=== PATIENT | female | born 1970 | race Caucasian/White ===

== ENCOUNTER 2025-06-29 14:23 | Inpatient (IN) ==
--- NOTE | 2025-06-29 14:51 | Emergency Department Note ---
Impression & Plan Closed hip fracture, Fall, Anemia, Leukocytosis ED Provider Note NAME: JACKIE SEAY (ELAINE) AGE: 55 SEX: F : 1970 ARRIVES VIA: Walk-In INFORMANT: Patient ED PROVIDER(S): Jasper Marlow DO CHIEF COMPLAINT: right hip and pelvis pain HPI: Patient is a 55-year-old female who presents to the ER for right hip and pelvis pain following a fall. She notes that she is post be walking with a walker but she was not using it at the time and her partner who is using it lost his balance and fell into her. She fell onto her right hip. She is having right hip pain since the fall earlier today. Denies any head strike. No neck pain. No other complaints at this time. She notes she does have a small abrasion to the right finger. Tetanus is up-to-date. No blood thinners. ADDITIONAL HISTORY OBTAINED: Per HPI Chronic Medical/Social Conditions Affecting Care: Per HPI PAST MEDICAL HISTORY:See Below PAST SURGICAL HISTORY:See Below FAMILY HISTORY:See Below SOCIAL HISTORY:See Below HOME MEDICATIONS:See Below ALLERGIES:See Below VITALS:See Below PHYSICAL EXAMINATION: GENERAL: alert, well appearing, well nourished, no distress, non-toxic HEAD: normal cephalic, atraumatic EYE EXAM: normal conjunctiva, PERRL and EOM's grossly intact OROPHARYNX: no exudate, no erythema, lips, buccal mucosa, and tongue normal and mucous membranes are moist NECK: supple, no nuchal rigidity, no adenopathy, non-tender CHEST: stable to compression anteriorly and posteriorly LUNGS: clear to auscultation. Normal chest wall mechanics HEART: no murmurs, S1 normal and S2 normal ABDOMEN: abdomen soft, non-tender, normo-active bowel sounds, no masses, no rebound or guarding. PELVIS: stable to compression anteriorly and posteriorly but tenderness on palpation of the right pelvis/groin BACK: Back is symmetrical on inspection and there is no deformity, no midline tenderness, no CVA tenderness. UPPER EXTREMITIES: full active and passive range of motion of all joints without tenderness to palpation LOWER EXTREMITIES: full active and passive range of motion of all joints without tenderness to palpation NEURO EXAM: Normal sensorium, cranial nerves II-XII grossly intact, normal speech, no gross weakness of arms, no gross weakness of legs. GCS: 15. MEDICAL DECISION MAKING: Patient is a 55-year-old female who presents ER for right hip pain. X-rays were obtained and showed no acute fracture. CT was obtained due to significant pain and did show a femoral neck fracture and greater troches fracture. Following this blood work was obtained and the case was discussed with the hospitalist and she was admitted for further workup. Labs showed mild leukocytosis 14,000. Mild anemia 11.6. BMP along with LFTs bilirubin and lipase is unremarkable. UA was contaminated. Patient declined pain medications she notes she was comfortable. Consults/Care Managements Discussions: Per [facility] Triage Nursing notes reviewed. Limited review of prior medical records performed Vital Signs: reviewed and remarkable for htn Differential diagnosis: Differential diagnoses include major intracranial, cervical, spinal, thoracic, abdominal, pelvic and neurologic injury. Fracture, contusion, sprain, strain, laceration, abrasions included as well. ER treatment provided: See below Diagnostics interpreted by me include EKG and cardiac monitoring as listed below: -Cardiac Monitoring: An order was placed for continuous cardiac monitoring. The monitor shows a rate of 60 with sinus rhythm. -ECG: none -Laboratory studies:Interpreted by me as stated above in MDM and shown below. Imaging studies: Xrays: As interpreted by me: X-rays of the right hip and pelvis showed no acute fracture CTs show: CT of the pelvis shows right hip fracture Procedures:none Critical Care: None Past Med/Surg History Problem List (Updated 06/29/25 @ 20:07 by Jasper Marlow DO) Leukocytosis (Acute) Anemia (Acute) Fall (Acute) Closed hip fracture (Acute) Social History Smoking Status: Former smoker Preferred Language: Mongolian Feels Safe at Home: Yes Home Meds Home Medications Medication Instructions Recorded Confirmed alprazolam 1 mg tablet 1 mg PO HS 06/29/25 06/29/25 citalopram 40 mg tablet 40 mg PO HS 06/29/25 06/29/25 ferrous sulfate 325 mg (65 mg 325 mg PO HS 06/29/25 06/29/25 iron) tablet (Iron (ferrous sulfate)) [id number] 8 mg-folic 400 1 tab PO DAILY 06/29/25 06/29/25 mcg-K 50 mcg-lutein 300 mcg tablet (Centrum Silver Women) Results & Data (ED) Vital Signs Vital Signs - 24 hr 06/29/25 14:32 06/29/25 18:21 06/29/25 18:28 Temperature 36.8 C Temperature Source Oral Pulse Rate 61 63 Pulse Rate [Right Finger] Respiratory Rate 18 18 18 Respiratory Effort / Characteristics Non-Labored Spontaneous Respiratory Depth Normal Normal Respiratory Pattern Regular Blood Pressure 144/86 H Blood Pressure [Right Arm] Blood Pressure Mean 105 Blood Pressure Mean [Right Arm] Pulse Oximetry 97 97 98 Oxygen Delivery Method Room Air Room Air Room Air Sepsis Recent Fever Within 48 Hours No Sepsis New/Unexplained Change in Mental Status N/A Sepsis Action Taken by Nursing No Action Required 06/29/25 18:29 06/29/25 18:36 06/29/25 19:00 Temperature 36.8 C Temperature Source Oral Pulse Rate 59 L Pulse Rate [Right Finger] 62 63 Respiratory Rate 18 18 Respiratory Effort / Characteristics Non-Labored Spontaneous Respiratory Depth Normal Normal Respiratory Pattern Regular Blood Pressure Blood Pressure [Right Arm] 142/72 H 130/81 Blood Pressure Mean Blood Pressure Mean [Right Arm] 95 97 Pulse Oximetry 98 98 Oxygen Delivery Method Room Air Room Air Sepsis Recent Fever Within 48 Hours Sepsis New/Unexplained Change in Mental Status Sepsis Action Taken by Nursing Laboratory Data 06/29/25 18:11 06/29/25 18:11 Lab Results 06/29/25 06/29/25 Range/Units 18:11 Unknown WBC 14.18 H (4.8-10.8) K/ul RBC 4.29 (4.20-5.40) M/uL Hgb 11.6 L (12.0-16.0) g/dl Hct 36.8 L (37.0-47.0) % MCV 85.8 (80.0-100.0) fL MCH 27.0 (25.0-34.0) pg MCHC 31.5 L (32.0-36.0) g/dL RDW Std Deviation 46.1 (36.4-46.3) fL RDW Coeff of [place] 14.9 H (11.5-14.5) % Plt Count 200 (130-400) K/uL MPV 8.6 L (9.4-12.4) fL Immature Gran % (Auto) 0.6 % Neut % (Auto) 74.6 % Lymph % (Auto) 17.3 % [place] % (Auto) 5.8 % Eos % (Auto) 1.1 % Baso % (Auto) 0.6 % Neut # (Auto) 10.59 H (1.40-6.50) K/uL Lymph # (Auto) 2.45 (1.20-3.40) K/uL [place] # (Auto) 0.82 H (0.11-0.59) K/uL Eos # (Auto) 0.15 (0.00-0.50) K/uL Baso # (Auto) 0.09 (0.00-0.20) K/uL Immature Gran # (Auto) 0.08 (0.01-0.20) K/uL Sodium 141 (136-145) mmol/L Potassium 3.6 (3.5-5.1) mmol/L Chloride 106 (98-107) mmol/L Carbon Dioxide 28 (21-32) mmol/L Anion Gap 7 (3-11) BUN 10 (6-23) mg/dl Creatinine 0.56 L (0.6-1.2) mg/dl Est Cr Clr Drug Dosing Not Reportable eGFR 107.71 BUN/Creatinine Ratio 17.9 (10-20) Glucose 93 (70-99(Fasting)) mg/dl Calcium 9.3 (8.6-10.3) mg/dl Total Bilirubin 0.5 (0.2-1.0) mg/dl AST 21 (13-39) U/L ALT 19 (7-52) U/L Alkaline Phosphatase 77 (34-104) U/L Total Protein 7.5 (6.0-8.3) gm/dl Albumin 3.8 (3.4-5.0) gm/dl Globulin 3.7 (2.5-4.0) gm/dl Albumin/Globulin Ratio 1.0 (0.9-2) Lipase 26 (11-82) U/L Urine Color Yellow Urine Appearance Cloudy A (Clear) Urine pH 8.0 H (4.5-7.5) Ur Specific [place] 1.013 (1.000-1.030) Urine Protein Negative (Negative) Urine Glucose (UA) Negative (Negative) Urine Ketones 2+ H (Negative) Urine Blood 1+ H (Negative) Urine Nitrite Negative (Negative) Urine Bilirubin Negative (Negative) Urine Urobilinogen Negative (Negative) Ur Leukocyte Esterase 2+ H (Negative) Urine WBC (Auto) >50 H (0-5) /hpf Urine RBC (Auto) 6-10 H (0-2) /hpf U Hyaline Cast (Auto) 6-10 H (0-2) /lpf U Epithel Cells (Auto) 0-2 (0-2) /hpf Urine Bacteria (Auto) None Seen (None Seen) Amorphous Sediment Present A (None Prsent) Urine Comment Imaging Data Radiologist's Impression: Hip/Pelvis X-Ray 06/29/25 14:49 XR hip RT 2V w pelvis CLINICAL HISTORY: r pelvis and hip pain s/p fall COMPARISON: None FINDINGS: There is a skinfold artifact which mildly limits the exam. No fracture or dislocation seen at the pelvis or right hip. No significant degenerative change of the hips. IMPRESSION: No fracture seen. ACT 112: Negative or not required by law. Electronically signed by: Shawn Good M.D. 06/29/2025 3:[address] 06/29/25 16:32 EXAMINATION: PELVIS CT without CLINICAL HISTORY: Right hip, pelvis pain, status post fall PRIORS: None TECHNIQUE: Contiguous axial images were obtained through the pelvis without the use of intravenous contrast. Sagittal and coronal reformations are supplied. FINDINGS: Moderate osseous demineralization is noted. Allowing for this, a mildly comminuted right femoral neck and intertrochanteric right femoral neck right greater trochanteric fracture is present, image 50, series 2. No significant displacement. No acetabular fracture. Right obturator ring is intact. Pubic symphysis is not widened. Mild regional right hip soft tissue swelling. Muscle bulk is symmetric. Contralateral hip and acetabulum unremarkable. L5 vertebral body is normal. No displaced sacral fracture. IMPRESSION: Mildly comminuted right femoral neck and greater trochanteric fracture with near anatomic alignment. Orthopedic surgery consultation suggested. Final report was sent to the requesting service at 5:46 PM in the emergency department on 06/29/2025. ACT 112: Positive. There are findings on this examination that require communication between the performing entity and the patient following Patient Test Result Information Act ([place] ACT 112) guidelines. Electronically signed by Jess Beck 06-29-2025 5:47 PM Discharge Plan Visit Data Chief Complaint: Fall Stated Complaint: FALL, HIP PAIN ED Provider: Jasper Marlow Discharge Problem: Closed hip fracture, Fall, Anemia, Leukocytosis Condition: Fair Forms Stand Alone Forms: [facility] [email or web address] Prescriptions Prescriptions: No Action citalopram 40 mg tablet 40 mg PO HS alprazolam 1 mg tablet 1 mg PO HS Patient Comments: per pt she ran out about a week ago ferrous sulfate [Iron (ferrous sulfate)] 325 mg (65 mg iron) Tablet 325 mg PO HS Centrum Silver Women 8 mg iron-400 mcg-50 mcg Tablet 1 tab PO DAILY Referrals Referrals: PCP,NO [Primary Care Provider] - Discharge Problem: Closed hip fracture Qualifiers: Encounter type: initial encounter Laterality: right Qualified Code(s): S72.001A - Fracture of unspecified part of neck of right femur, initial encounter for closed fracture Fall Qualifiers: Encounter type: initial encounter Qualified Code(s): W19.XXXA - Unspecified fall, initial encounter Anemia Qualifiers: Anemia type: unspecified type Qualified Code(s): D64.9 - Anemia, unspecified Leukocytosis Qualifiers: Leukocytosis type: unspecified Qualified Code(s): D72.829 - Elevated white blood cell count, unspecified
--- NOTE | 2025-06-29 15:41 | XRay Report ---
XR hip RT 2V w pelvis CLINICAL HISTORY: r pelvis and hip pain s/p fall COMPARISON: None FINDINGS: There is a skinfold artifact which mildly limits the exam. No fracture or dislocation seen at the pelvis or right hip. No significant degenerative change of the hips. IMPRESSION: No fracture seen. ACT 112: Negative or not required by law. Electronically signed by: Shawn Good M.D. 06/29/2025 3:40 PM
--- NOTE | 2025-06-29 17:48 | CT Scan Report ---
EXAMINATION: PELVIS CT without CLINICAL HISTORY: Right hip, pelvis pain, status post fall PRIORS: None TECHNIQUE: Contiguous axial images were obtained through the pelvis without the use of intravenous contrast. Sagittal and coronal reformations are supplied. FINDINGS: Moderate osseous demineralization is noted. Allowing for this, a mildly comminuted right femoral neck and intertrochanteric right femoral neck right greater trochanteric fracture is present, image 50, series 2. No significant displacement. No acetabular fracture. Right obturator ring is intact. Pubic symphysis is not widened. Mild regional right hip soft tissue swelling. Muscle bulk is symmetric. Contralateral hip and acetabulum unremarkable. L5 vertebral body is normal. No displaced sacral fracture. IMPRESSION: Mildly comminuted right femoral neck and greater trochanteric fracture with near anatomic alignment. Orthopedic surgery consultation suggested. Final report was sent to the requesting service at 5:46 PM in the emergency department on 06/29/2025. ACT 112: Positive. There are findings on this examination that require communication between the performing entity and the patient following Patient Test Result Information Act ([place] ACT 112) guidelines. Electronically signed by Jess Beck 06-29-2025 5:47 PM
[2025-06-29] MEDS ORDERED: HYDROmorphone INJ 0.5 MG/0.5 ML SYR IV PRN (18:21)
[2025-06-29 18:26] LABS: Hematocrit (blood only) 36.8 % (37.0-47.0); Hemoglobin 11.6 g/dl (12.0-16.0); Immature Granulocytes # (auto) 0.08 K/uL (0.01-0.20); Immature Granulocytes % (auto) 0.6 %; Mean Corpuscular Hemoglobin 27.0 pg (25.0-34.0); Mean Corpuscular Volume 85.8 fL (80.0-100.0); Platelet Count 200 K/uL (130-400); RDW Standard Deviation 46.1 fL (36.4-46.3); Red Blood Count 4.29 M/uL (4.20-5.40); White Blood Count 14.18 K/ul (4.8-10.8)
[2025-06-29 18:41] LABS: Alanine Aminotransferase 19 U/L (7-52); Albumin Globulin Ratio 1.0 (0.9-2); Albumin Level 3.8 gm/dl (3.4-5.0); Alkaline Phosphatase 77 U/L (34-104); Anion Gap 7 (3-11); Bilirubin,Total 0.5 mg/dl (0.2-1.0); Blood Urea Nitrogen 10 mg/dl (6-23); Calcium 9.3 mg/dl (8.6-10.3); Carbon Dioxide 28 mmol/L (21-32); Chloride 106 mmol/L (98-107); Globulin 3.7 gm/dl (2.5-4.0); Glucose 93 mg/dl (70-99(Fasting)); Lipase 26 U/L (11-82); Potassium 3.6 mmol/L (3.5-5.1); Sodium 141 mmol/L (136-145); Total Protein 7.5 gm/dl (6.0-8.3)
[2025-06-29 19:58] LABS: Appearance Urine Cloudy (Clear); Bacteria Urine Automated None Seen (None Seen); Epithelial Cell Urine Auto 0-2 /hpf (0-2); Glucose Urine UA Negative (Negative); WBC Urine Automated >50 /hpf (0-5)
--- NOTE | 2025-06-29 20:31 | History & Physical Report ---
Date of Service June 29, 2025 Assessment & Plan (1) Closed hip fracture: (2) Fall: Plan 55 yo female with pmhx of neurologic disorder of unknown significance (uses walker, has right eye blindness, urinary incontinence) who presents after a fall for right hip pain 2/2 mechanical fall and right femur fracture. #Mechanical Fall #Right Comminuted Femur/Greater Trochanter Fracture -confirmed by CT imaging -tender to palpation Plan: -ortho consult appreciate recs -discussed personally with ortho, recommending NPO after midnight, SCDs -oxycodone, dilaudid prn and scheduled tylenol for pain control -PT/OT ordered #Neurologic Disorder of Unknown Origin -patient has chronic urinary incontinence, uses walker, all chronic -right eye blindness -patient appears to have some element of spasticity/poor mobility in hands and legs with hyperreflexia in arms and legs -patient denies formal diagnosis but states she has had these issues for a very long time Plan: -neurology consultation outpatient -will likely need tavares placement for procedure #UTI #Leukocytosis -suggested by UA and leukocytosis -no symptoms but fall and overall apperance concerning Plan: -start ceftriaxone x5 days #Cachexia -transfer and pumphouse operator chief consult I spent a total of 80 minutes in direct patient care, including [id number] time with the patient and/or family, reviewing medical records, ordering and reviewing diagnostic tests, and coordinating care with other healthcare providers. This time includes: history taking, physical examination, medical decision making, counseling, ECG interpretation, imaging interpretation, lab interpretation, orders, and education, excluding time spent in the performance of separately billed services. History of Present Illness Chief Complaint: -right hip pain Primary Care Provider: NO PCP 55 yo female with pmhx of neurologic disorder of unknown significance (uses walker, has right eye blindness, urinary incontinence) who presents after a fall for right hip. Patient is visiting from [place] and has no prior admissions here at [facility]. In the ED, CT hip revealing right commuted femur/greater trochanter fracture, admitted to medicine for further workup. Patient seen and examined at bedside. Father present as well. Patient was getting out of car and father fell on her which caused her to fall on the ground. No LOC, no head strike. Uses a walker but was not using it at the time, and occasionally does not use it. Immediately felt pain in right hip. She states that she has a neurologic disorder of unknown origin, she uses a walker, chronic cachexia, urinary incontinence, and right eye blindness. States she does not have any other medical conditions. Visiting from out of town in [place]. Denies alcohol or tobacco use, full code. Home Medications Medication Instructions Recorded Confirmed Type alprazolam 1 mg tablet 1 mg PO HS 06/29/25 06/29/25 History citalopram 40 mg tablet 40 mg PO HS 06/29/25 06/29/25 History ferrous sulfate 325 mg (65 mg 325 mg PO HS 06/29/25 06/29/25 History iron) tablet (Iron (ferrous sulfate)) [id number]-[id number] 8 mg-folic 400 1 tab PO DAILY 06/29/25 06/29/25 History mcg-K 50 mcg-lutein 300 mcg tablet (Centrum Silver Women) Past Med/Surg History Problem List (Updated 06/29/25 @ 20:07 by Jasper Marlow DO) Leukocytosis (Acute) Anemia (Acute) Fall (Acute) Closed hip fracture (Acute) Social History Smoking Status: Former smoker Preferred Language: Burkinan Feels Safe at Home: Yes Review of Systems Review of Systems: -negative unless listed above Physical Exam Physical Exam: Gen: A&O 3 NAD, severe cachexia and sarcopenia HEENT: NCAT, EOMI, not icteric. External ears normal. No rhinorrhea. Moist mucous membranes. Neck: Supple, full range of motion, no observable masses, No meningeal sign. Lungs: No Respiratory distress. CV: RRR, no edema. Abdomen: Soft, nondistended, No rebound tenderness. MSK: tenderness to right hip, slight internal rotation Skin: No rashes, petechiae, lesions. Normal color per patient. Neuro: Normal Gait, Grossly intact. Psych: Appropriate for situation. Results & Data Results & Data Vital Signs (Past 12 Hours) Vital Signs Temp Pulse Pulse Resp BP BP Pulse Ox 06/29/25 19:00 36.8 C 63 18 130/81 98 06/29/25 18:36 59 L 06/29/25 18:29 62 18 142/72 H 98 06/29/25 18:28 18 98 06/29/25 18:21 63 18 97 06/29/25 14:32 36.8 C 61 18 144/86 H 97 O2 Del Method 06/29/25 19:00 Room Air 10/14/25 18:36 06/29/25 18:29 Room Air 06/29/25 18:28 Room Air 06/29/25 18:21 Room Air 06/29/25 14:32 Room Air Laboratory Results -personally reviewed, leukocytosis of unclear etiology but likely reactive given neutrophilic predominance, creatinine WNL, UA with significant WBC and leuks. CT imaging revealing slightly comminuted right femur/greater trochanter fracture. Code Status & VTE Plan Code Status -full code VTE Prophylaxis Plan VTE Prophylaxis will be ordered: Yes (1) Closed hip fracture Encounter type: initial encounter Laterality: right Qualified Code(s): S72.001A - Fracture of unspecified part of neck of right femur, initial encounter for closed fracture (2) Fall Encounter type: initial encounter Qualified Code(s): W19.XXXA - Unspecified fall, initial encounter
[2025-06-29] MEDS ORDERED: ONDANSETRON INJ 2 MG/ML 2 ML VIAL IV PRN (20:47)
[2025-06-29] MEDS ORDERED: POLYETHYLENE (MIRALAX) 17 GM PACK PO PRN (20:47)
--- NOTE | 2025-06-29 22:06 | XRay Report ---
Exam(s): XR CXR 1 VIEW EXAM: XR Chest, 1 View CLINICAL HISTORY: Reason for exam: preop, unknown medical hx. TECHNIQUE: Frontal view of the chest. COMPARISON: No relevant prior studies available. FINDINGS: Lungs: No consolidation. Pleural space: No significant pleural effusion. No pneumothorax. Heart: No cardiomegaly or pulmonary vascular congestion. Bones/joints: No acute fracture. No dislocation. IMPRESSION: No evidence of acute cardiopulmonary disease. Electronically signed by: Franklin Fowler M.D. 06/29/25 22:04 PM
[2025-06-29] MEDS: cefTRIAXone SODIUM 2,000 MG/50 ML BAG IV SCH (22:15)
[2025-06-29] MEDS: CITALOPRAM 40 MG TAB PO SCH (22:16)
[2025-06-29] MEDS: ACETAMINOPHEN 500 MG TAB PO SCH (22:21)
[2025-06-29] MEDS: Patient's HEIGHT &/or WEIGHT Needed STA (22:42)
[2025-06-29] MEDS: LACTATED RINGER'S 1,000 ML IV SCH (22:45)
[2025-06-30 06:34] LABS: Hematocrit (blood only) 33.6 % (37.0-47.0); Hemoglobin 11.0 g/dl (12.0-16.0); Mean Corpuscular Hemoglobin 28.2 pg (25.0-34.0); Mean Corpuscular Volume 86.2 fL (80.0-100.0); Platelet Count 177 K/uL (130-400); RDW Standard Deviation 45.4 fL (36.4-46.3); Red Blood Count 3.90 M/uL (4.20-5.40); White Blood Count 7.77 K/ul (4.8-10.8)
[2025-06-30 07:09] LABS: Anion Gap 6.0 (3-11); Blood Urea Nitrogen 10.0 mg/dl (6-23); Calcium 8.6 mg/dl (8.6-10.3); Carbon Dioxide 28.0 mmol/L (21-32); Chloride 107.0 mmol/L (98-107); Creatinine Clr Calc Pharmacy 82.3 ml/min; Glucose 82.0 mg/dl (70-99(Fasting)); Potassium 3.6 mmol/L (3.5-5.1); Sodium 141.0 mmol/L (136-145)
[2025-06-30 07:13] LABS: INR 1.2 (0.9-1.1); Prothrombin Time 12.1 Seconds (9.0-12.0)
--- NOTE | 2025-06-30 09:18 | Orthopedic Consultation ---
Date of Service June 30, 2025 Assessment & Plan (1) Closed fracture of greater trochanter of right femur: * Case/imaging reviewed and discussed with Dr Hahn * Available imaging demonstrates fracture of the greater trochanter * Minimal pain with hip motion on exam * Recommend MRI hip to further differentiate fracture pattern * Weight bearing status: NWB until imaging complete * Possible OR depending on imaging findings * Maintain NPO for now * Daily treatment: Physical Therapy/ Occupational Therapy per protocol * Pain control * Disposition: TBD * Remainder care per primary team * Will continue to follow and update plan as available * Update * MRI complete, demonstrates intertrochanteric fracture * Plan for OR this afternoon with Dr Coronado * Maintain NPO * NWB pre-op History of Present Illness Reason for Consultation: R hip pain Requesting Physician: . Attending Physician: Bre Limon MD .Patient is a 55 y/o female with right hip pain. PMH including neurologic disorder of unknown significance (uses walker, has right eye blindness, urinary incontinence). Presents to hospital with right hip pain after a fall. Per report patient was ambulating with her father when he fell causing her to also fall, injuring the right hip. Unable to ambulate following fall secondary to pain. Current workup including XR and CT right hip demonstrating what appears to be an isolated greater trochanter fracture with unicortical femoral neck extension. Admitted to hospital medicine team. Orthopedics consulted for management recommendations. At time of exam patient lying comfortably in bed, no acute distress. Reports mild hip pain at rest that increases with attempted weight bearing. Denies tingling/numbness of the right lower extremity. Uses walker at baseline. Allergies Allergy/AdvReac Type Severity Reaction Status Date / Time No Known Allergies Allergy Unverified 06/29/25 21:37 Home Medications Medication Instructions Recorded Confirmed Type alprazolam 1 mg tablet 1 mg PO HS 06/29/25 06/29/25 History citalopram 40 mg tablet 40 mg PO HS 06/29/25 06/29/25 History ferrous sulfate 325 mg (65 mg 325 mg PO HS 06/29/25 06/29/25 History iron) tablet (Iron (ferrous sulfate)) [id number] 8 mg-folic 400 1 tab PO DAILY 06/29/25 06/29/25 History mcg-K 50 mcg-lutein 300 mcg tablet (Centrum Silver Women) Past Med/Surg History Problem List (Updated 06/30/25 @ 09:16 by Bo Guevara PA-C) Closed fracture of greater trochanter of right femur Leukocytosis (Acute) Anemia (Acute) Fall (Acute) Social History Smoking Status: Former smoker Hx Alcohol Use: No Hx Substance Use: No Preferred Language: Greenlandic Communication Ability: Effective Eap Consultant Required: No Beliefs That Will Affect Care: None Current Living Situation: Alone Feels Safe at Home: Yes Assistive Devices: Denture - Upper, Glasses and Walker Review of Systems All systems reviewed & are unremarkable except as noted in HPI & below. Physical Exam . * General: Alert and oriented, no acute distress * Constitutional: well-developed, well-nourished. * Respiratory: Normal respiratory effort, no distress * Gastrointestinal: No tenderness to palpation, no rigidity or guarding. * Skin: No rash or lesion. * Neurologic: Grossly normal * Musculoskeletal: Right lower extremity with no obvious deformity or overlying skin changes. Mild TTP anterior hip/groin region. Otherwise no specific tenderness of the thigh, knee, lower leg. No pain with logroll. Otherwise ROM hip not assessed. AROM foot/ankle intact. Sensation intact plantar/dorsal foot. Brisk capillary refill. Results & Data Results & Data Laboratory Results . Diagnostic Findings . Hip/Pelvis X-Ray 06/29/25 14:49 XR hip RT 2V w pelvis CLINICAL HISTORY: r pelvis and hip pain s/p fall COMPARISON: None FINDINGS: There is a skinfold artifact which mildly limits the exam. No fracture or dislocation seen at the pelvis or right hip. No significant degenerative change of the hips. IMPRESSION: No fracture seen. ACT 112: Negative or not required by law. Electronically signed by: Shawn Good M.D. 06/29/2025 3:[address] 06/29/25 16:32 EXAMINATION: PELVIS CT without CLINICAL HISTORY: Right hip, pelvis pain, status post fall PRIORS: None TECHNIQUE: Contiguous axial images were obtained through the pelvis without the use of intravenous contrast. Sagittal and coronal reformations are supplied. FINDINGS: Moderate osseous demineralization is noted. Allowing for this, a mildly comminuted right femoral neck and intertrochanteric right femoral neck right greater trochanteric fracture is present, image 50, series 2. No significant displacement. No acetabular fracture. Right obturator ring is intact. Pubic symphysis is not widened. Mild regional right hip soft tissue swelling. Muscle bulk is symmetric. Contralateral hip and acetabulum unremarkable. L5 vertebral body is normal. No displaced sacral fracture. IMPRESSION: Mildly comminuted right femoral neck and greater trochanteric fracture with near anatomic alignment. Orthopedic surgery consultation suggested. Final report was sent to the requesting service at 5:46 PM in the emergency department on 06/29/2025. ACT 112: Positive. There are findings on this examination that require communication between the performing entity and the patient following Patient Test Result Information Act ([place] ACT 112) guidelines. Electronically signed by Jess Beck 06-29-2025 5:47 PM Chest X-Ray 06/29/25 20:45 Exam(s): XR CXR 1 VIEW EXAM: XR Chest, 1 View CLINICAL HISTORY: Reason for exam: preop, unknown medical hx. TECHNIQUE: Frontal view of the chest. COMPARISON: No relevant prior studies available. FINDINGS: Lungs: No consolidation. Pleural space: No significant pleural effusion. No pneumothorax. Heart: No cardiomegaly or pulmonary vascular congestion. Bones/joints: No acute fracture. No dislocation. IMPRESSION: No evidence of acute cardiopulmonary disease. Electronically signed by: Franklin Fowler M.D. 06/29/25 22:04 PM PG Care Time/CCT Total # of Minutes Spent Total Time Spent with Patient: Total time spent is greater than 50% in coordination of care (as documented) at patient's floor/unit and/or counseling patient: [place] [address] IN/OBS CONSULT LVL 4,60M Patient Type New Medical Decision Making Moderate Complexity Diagnoses Closed fracture of greater trochanter of right femur S72.111A
--- NOTE | 2025-06-30 11:15 | Hospitalist Progress Note ---
Date of Service June 30, 2025 Assessment & Plan (1) Closed hip fracture: (2) Fall: Plan 55 yo female with pmhx of neurologic disorder of unknown significance (uses walker, has right eye blindness, urinary incontinence) who presents after a fall for right hip pain 2/2 mechanical fall and right femur fracture. Mechanical Fall Right Comminuted Femur/Greater Trochanter Fracture confirmed by CT imaging Mild pain to rom. ortho consult, await further recs Pain Mx by oxycodone, dilaudid prn and scheduled tylenol for pain control; c/w bowel regimen. PT/OT UTI Leukocytosis suggested by UA and leukocytosis no symptoms but fall and overall appearance concerning f/u Urine Cx, c/w ceftriaxone 06/29 for 5 days Neurologic Disorder of Unknown Origin -patient has chronic urinary incontinence, uses walker, all chronic -right eye blindness -patient appears to have some element of spasticity/poor mobility in hands and legs with hyperreflexia in arms and legs -patient denies formal diagnosis but states she has had these issues for a very long time Plan: -neurology consultation outpatient -will likely need tavares placement for procedure #Cachexia/underlying chronic malnutrition-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 Patient was lying in bed, on room air, NAD, resting comfortably. Patient reports no pain at right hip with no movement, gets some pain when trying to sit up. Denies fever/sore throat/cough/chest pain/other review of symptoms. Physical Exam Physical Exam: Gen: A&O 3 NAD, severe cachexia and sarcopenia HEENT: NCAT, EOMI, not icteric. External ears normal. No rhinorrhea. Moist mucous membranes. Neck: Supple, full range of motion, no observable masses, No meningeal sign. Lungs: No Respiratory distress. CV: RRR, no edema. Abdomen: Soft, nondistended, No rebound tenderness. MSK: tenderness to right hip w/ ROM, no int rotation/shortening noted. Skin: No rashes, petechiae, lesions. Normal color per patient. Neuro: Normal Gait, Grossly intact. Psych: Appropriate for situation. Results & Data Results & Data Vital Signs (Past 12 Hours) Vital Signs Temp Pulse Resp BP Pulse Ox O2 Del Method 06/30/25 07:00 36.8 C 58 L 16 108/68 98 Room Air (1) Closed hip fracture Encounter type: initial encounter Laterality: right Qualified Code(s): S72.001A - Fracture of unspecified part of neck of right femur, initial encounter for closed fracture (2) Fall Encounter type: initial encounter Qualified Code(s): W19.XXXA - Unspecified fall, initial encounter
--- NOTE | 2025-06-30 11:19 | Magnetic Resonance Report ---
MRI OF THE RIGHT HIP WITHOUT CONTRAST CLINICAL HISTORY: Evaluate right hip fracture. COMPARISON STUDY: Pelvis and right hip radiographs and CT of the pelvis and hips June 29, 2025. TECHNIQUE: Utilizing a 3 Nicole magnet and dedicated coil, multiplanar, multi echo imaging of the [facility] t hip was performed without intra-articular or intravenous contrast. FINDINGS: A Greene balloon within the bladder is incidentally noted. There is a 3.8 cm oval-shaped T1 and T2 hyperintense left adnexal lesion. This favors an endometrioma. There is an adjacent 1.9 cm lef t ovarian lesion which favors a cyst. There is moderate edema within the right superior pubic ramus. There is associated linear T1 hypointense signal consistent with an acute nondisplaced fracture. Of n ote, there is an acute intertrochanteric fracture of the right femur. The fracture extends through th e greater trochanter to the base of the lesser trochanter. A portion of the greater trochanter is sli ghtly displaced. The remainder of the fracture is nondisplaced. There is an associated right hip join t effusion. There is moderate adjacent soft tissue edema. Edema extends into the right adductor muscu lature. There is mild T2 hyperintensity within the left ischial tuberosity. Minimal adjacent intramus cular edema. No definitive associated fracture line is present. There is no fracture within the left hip. IMPRESSION: 1. Acute intertrochanteric fracture of the right femur. A portion of the greater trochanter is slight ly displaced. The remainder of the fracture is nondisplaced. 2. Acute nondisplaced superior right pubic ramus fracture. 3. Mild marrow edema within the left ischial tuberosity is nonspecific without definitive fracture li ne. ACT 112: Negative or not required by law. Electronically signed by: Sreekanth Mcduffie M.D. 06/30/2025 11:18 AM
[2025-06-30] MEDS ORDERED: MIDAZOLAM HCL 1 MG/ML 2ML VIAL ONE (11:51)
[2025-06-30] MEDS ORDERED: LIDOCAINE 2% 2 ML VIAL/AMP(20MG/ML) INFIL ONE (11:51)
[2025-06-30] MEDS ORDERED: PROPOFOL IV EMULSION 10 MG/ML 20 ML VIAL IV ONE ×2 (11:56→12:00)
[2025-06-30] MEDS ORDERED: ONDANSETRON INJ 2 MG/ML 2 ML VIAL ONE (11:56)
[2025-06-30] MEDS ORDERED: BUPIVACAINE 0.5 % 5 MG/1 ML PF 10ML VIAL ONE (12:13)
--- NOTE | 2025-06-30 12:14 | Anesthesiology Consultation ---
Date of Service June 30, 2025 Assessment & Plan (1) Encounter for pre-operative examination: Chart Review Chart Review: Acceptable Risk for Surgery and Patient NOT seen in Pre Admission Testing Consults Requested none History Surgery Operation Date: 06/30/25 09:40 Proposed Procedures p Right Troch Nail - Doron Coronado MD Height/Weight Height: 5 ft 2 in Weight: 45.087 kg Allergies Allergy/AdvReac Type Severity Reaction Status Date / Time No Known Allergies Allergy Unverified 06/29/25 21:37 Medications Home Medications Medication Instructions Recorded Confirmed Last Taken alprazolam 1 mg tablet 1 mg PO HS 06/29/25 06/29/25 1 Week Ago ~06/22/25 citalopram 40 mg tablet 40 mg PO HS 06/29/25 06/29/25 06/28/25 ferrous sulfate 325 mg (65 mg 325 mg PO HS 06/29/25 06/29/25 06/28/25 iron) tablet (Iron (ferrous sulfate)) [id number] 8 mg-folic 400 1 tab PO DAILY 06/29/25 06/29/25 06/28/25 mcg-K 50 mcg-lutein 300 mcg tablet (Centrum Silver Women) Active Medications Generic Name Dose Route Start Last Admin Trade Name Freq PRN Reason Stop Dose Admin Acetaminophen 1,000 mg 06/29/25 22:00 06/30/25 05:43 Acetaminophen 500 Mg Tab PO 07/29/25 21:59 1,000 mg Q8 AMOL Administration Alprazolam 0.5 mg 06/29/25 21:00 06/29/25 22:22 Alprazolam 0.5 Mg Tablet PO 07/29/25 20:59 0.5 mg HS AMOL Administration Citalopram Hydrobromide 40 mg 06/29/25 21:00 06/29/25 22:16 Citalopram 40 Mg Tab PO 07/29/25 20:59 40 mg HS AMOL Administration Ceftriaxone Sodium 2,000 mg in 50 mls @ 100 mls/hr 06/29/25 22:00 06/29/25 22:45 Rocephin IV 07/04/25 21:59 Infused Q24H AMOL Infusion Lactated Ringer's 1,000 mls @ 80 mls/hr 06/29/25 22:00 06/30/25 12:01 Lr IV 06/30/25 21:59 Infused .[id number] AMOL Infusion Oxycodone HCl 5 mg 06/29/25 18:21 06/30/25 05:46 Oxycodone Hcl Ir 5 Mg Tab (Immediate Release) PO 07/13/25 18:20 5 mg Q4 PRN Administration Severe Pain (Scale 7, 8, 9,10) Social History Smoking Status: Former smoker Hx Alcohol Use: No Hx Substance Use: No Physical Exam Vital Signs Last Vital Signs Temp 98.6 F 06/30/25 11:35 Pulse 52 L 06/30/25 11:35 Resp 18 06/30/25 11:35 BP 106/70 06/30/25 11:35 Pulse Ox 97 06/30/25 11:35 O2 Del Method Room Air 06/30/25 11:35 Testing Laboratory Results 06/30/25 06:02 06/30/25 06:02 PT 12.1 Seconds (9.0-12.0) H 06/30/25 06:02 INR 1.2 (0.9-1.1) H 06/30/25 06:02 Urine Color Yellow 06/29/25 Unknown Urine Appearance Cloudy (Clear) A 06/29/25 Unknown Urine pH 8.0 (4.5-7.5) H 06/29/25 Unknown Ur Specific [place] 1.013 (1.000-1.030) 06/29/25 Unknown Urine Protein Negative (Negative) 06/29/25 Unknown Urine Glucose (UA) Negative (Negative) 06/29/25 Unknown Urine Ketones 2+ (Negative) H 06/29/25 Unknown Urine Nitrite Negative (Negative) 06/29/25 Unknown Ur Leukocyte Esterase 2+ (Negative) H 06/29/25 Unknown Urine WBC (Auto) >50 /hpf (0-5) H 06/29/25 Unknown Urine RBC (Auto) 6-10 /hpf (0-2) H 06/29/25 Unknown U Hyaline Cast (Auto) 6-10 /lpf (0-2) H 06/29/25 Unknown U Epithel Cells (Auto) 0-2 /hpf (0-2) 06/29/25 Unknown Urine Bacteria (Auto) None Seen (None Seen) 06/29/25 Unknown Blood Type A Positive 06/29/25 21:04 Antibody Screen NEGATIVE 06/29/25 21:04
--- NOTE | 2025-06-30 12:36 | History & Physical Bridge Note ---
Date of Service June 30, 2025 History & Physical Bridge Note I have examined the patient, reviewed the History & Physical and in the interval since the performance of the History & Physical I have noted the following changes of clinical significance: no changes noted
[2025-06-30] MEDS: TRANEXAMIC ACID / 0.7% NACL 1,000 MG/100 ML BAG IV ONE (12:51)
[2025-06-30] MEDS ORDERED: ATROPINE SULFATE 0.1 MG/ML 10ML SYR IV PRN (13:07)
[2025-06-30] MEDS ORDERED: ePHEDrine sulfate 50 MG/5 ML SYR ONE (13:26)
[2025-06-30] MEDS: BUPIVACAINE/EPINEPHRINE 0.5% MPF 1:200,000 30 ML VIAL ONE (13:55)
--- NOTE | 2025-06-30 14:15 | Operative Report ---
PG Post Operative Report Pre & Post Diagnosis Operation Date: 06/30/25 09:40 Pre-Op Diagnosis: Right intertrochanteric hip Fracture Post-Op Diagnosis: Right intertrochanteric hip Fracture I identified the patient and participated in the time-out.: Yes Procedure Operation Date: 06/30/25 09:40 Actual Procedures p Right Long Troch Nail(Right) - Doron Coronado MD Surgeon Doron Coronado MD Reconciler Dixon Castellanos PA-C Estimated Blood Loss 50 Findings Consistent with Post-Op Diagnosis Specimens None Anesthesia Type Spinal MAC Complications none Disposition Accompanied Patient To Recovery: No Indications The patient is a 55-year-old female with multiple medical comorbidities and Walker ambulator who sustained mechanical fall yesterday. That she had the acute onset of pain and could not ambulate afterwards. No preoperative/ preinjury hip pain. As she was brought to the emergency room where x-rays suggested a possible fracture. An MRI was obtained which showed a clear obvious nondisplaced intertrochanteric hip fracture. The patient indicated for surgical repair Description of Procedure Operative implants consist of: 1. Synthes right 340 mm x 10 mm long trochanteric nail. 2. 80 mm helical blade 3 40 mm x 5 mm distal interlocking screw. The patient was taken to the op room, identified, placed on the operating table in the supine position. All contact areas were appropriately padded. IV antibiotics were applied by the anesthesia team. A spinal anesthetic was implemented. The patient is then placed on the fracture table. The right leg was placed in boot traction of the left leg was placed in a well-leg caicedo. Applied some longitudinal traction to the foot and internally rotated foot so the kneecap pointed to the ceiling. Some x-rays were obtained. The fracture was nondisplaced. The right hip and leg were then scrubbed with Hibiclens, prepped with ChloraPrep and draped in usual sterile fashion. A curvilinear incision was made just proximal to the tip of the trochanter. Sharp dissection was Through subcutaneous tissue down to the level of the gluteal fascia. The gluteal fascia incised longitudinally in line with skin incision. A guidewire was placed just lateral to the tip of the trochanter and in line with the IM canal. This advanced under the IM canal under fluoroscopic guidance. This was verified and then overreamed with a large reamer. This guidewire was removed for the ball-tipped guidewire and we measured for nail length and a 340 mm nail was selected. I then overreamed the guidewire with a 10 mm reamer followed by the and . A Synthes right 340 mm bio 10 mm right long trochanteric nail was placed over the guidewire and tapped into position. The lateral aiming arm was attached. A stab incision was made in the lateral aiming arm was advanced the lateral aspect of the femur. A guidewire was placed in the central aspect of the femoral head in the AP and lateral planes. This was measured and a 88 mm helical blade was placed. The proximal setscrew was tightened. Attention was then drawn toward distal interlocking. Using a perfect nisqually technique a distal interlocking screw was placed in the dynamic hole. Stab incision was made. A drill was used and a 40 mm prole screw was placed. Safyral x-rays were obtained. Attention drawn toward closing. All wounds were irrigated extensively. I injected locally with 30 cc of half percent Marcaine with epinephrine. The luteal fascia was then closed with #1 Vicryl suture in running fashion the subcutaneous tissues of all wounds were then closed with 2-0 Dexon suture in a buried interrupted fashion skin was closed skin saige. Leg was then cleaned and dried and a sterile dressing with Xeroform, 4 fours, ABD pad and foam tape were applied. The patient was then taken off the fracture table and transferred to the recovery room in stable condition. Patient tolerated the procedure well and there were no complications. Dixon Castellanos, my physician assistant to the ceo, was present for the entire procedure. His assistance was required for proper patient positioning, prepping and draping, surgical exposure, retraction, perform the technical details of the operation, closure of the incision site, placement of postoperative sterile bandage. I attest to the content of the Intraoperative Record and any orders documented therein. Any exceptions are noted below.
--- NOTE | 2025-06-30 14:16 | Fluoroscopy Report ---
FL femur RT 2V CLINICAL HISTORY: RT TROCH NAIL COMPARISON STUDY: 06/29/2025 FLUOROSCOPY TIME: 65 seconds FLUOROSCOPY IMAGES: 5 EXPOSURE DOSE: 6 mGy FINDINGS: Fluoroscopy was provided for right femoral gamma nail. IMPRESSION: Intraoperative fluoroscopy. ACT 112: Negative or not required by law. Electronically signed by: Shawn Good M.D. 06/30/2025 2:15 PM
[2025-06-30] MEDS: ONDANSETRON INJ 2 MG/ML 2 ML VIAL IV PRN (14:36)
--- NOTE | 2025-06-30 14:40 | Anesthesiology Progress Note ---
Date of Service June 30, 2025 Anesthesia Post Procedure Vital Signs Vital Signs: Temp Pulse Pulse Pulse Resp BP BP 06/30/25 14:30 60 19 138/79 06/30/25 14:20 52 L 22 126/72 06/30/25 14:11 36.1 C L 61 12 124/61 06/30/25 12:41 37.0 C 64 18 138/78 06/30/25 11:35 37.0 C 52 L 18 106/70 06/30/25 07:00 36.8 C 58 L 16 108/68 06/29/25 20:40 06/29/25 20:40 37.4 C 61 20 133/75 06/29/25 19:00 36.8 C 63 18 130/81 06/29/25 18:36 59 L 06/29/25 18:29 62 18 142/72 H 06/29/25 18:28 18 06/29/25 18:21 63 18 Pulse Ox O2 Del Method O2 Flow Rate 06/30/25 14:30 100 Room Air 06/30/25 14:20 100 Room Air 06/30/25 14:11 97 Oxymask 5 06/30/25 12:41 97 Room Air 06/30/25 11:35 97 Room Air 06/30/25 07:00 98 Room Air 06/29/25 20:40 Room Air 06/29/25 20:40 96 Room Air 06/29/25 19:00 98 Room Air 06/29/25 18:36 06/29/25 18:29 98 Room Air 06/29/25 18:28 98 Room Air 06/29/25 18:21 97 Room Air Transfer of Care Handoff Completed per policy Notes Mental Status: alert / awake / arousable Patient Amnestic to Procedure: Yes Nausea / Vomiting: adequately controlled Pain: adequately controlled Airway Patency, RR, SpO2: stable & adequate BP & HR: stable & adequate Hydration State: stable & adequate Neuraxial Anesthesia: was administered and sensory block is resolving Anesthetic Complications: no major complications apparent
[2025-06-30] MEDS: ASPIRIN 81 MG ECTAB PO SCH (20:06)
[2025-06-30] MEDS: DOCUSATE SODIUM 100 MG CAP PO SCH (20:07)
[2025-07-01 06:35] LABS: Hematocrit (blood only) 31.2 % (37.0-47.0); Hemoglobin 10.0 g/dl (12.0-16.0); Immature Granulocytes # (auto) 0.03 K/uL (0.01-0.20); Immature Granulocytes % (auto) 0.3 %; Mean Corpuscular Hemoglobin 27.5 pg (25.0-34.0); Mean Corpuscular Volume 86.0 fL (80.0-100.0); Platelet Count 155 K/uL (130-400); RDW Standard Deviation 45.3 fL (36.4-46.3); Red Blood Count 3.63 M/uL (4.20-5.40); White Blood Count 10.58 K/ul (4.8-10.8)
[2025-07-01 06:51] LABS: Anion Gap 13.0 (3-11); Blood Urea Nitrogen 6.0 mg/dl (6-23); Calcium 8.3 mg/dl (8.6-10.3); Carbon Dioxide 22.0 mmol/L (21-32); Chloride 105.0 mmol/L (98-107); Creatinine Clr Calc Pharmacy 90.5 ml/min; Glucose 66.0 mg/dl (70-99(Fasting)); Magnesium 1.6 mg/dl (1.7-2.4); Potassium 3.4 mmol/L (3.5-5.1); Sodium 140.0 mmol/L (136-145)
[2025-07-01 08:09] VITALS: RESP 18; TEMP 97.9; O2SAT 100
--- NOTE | 2025-07-01 08:40 | Orthopedic Progress Note ---
Date of Service July 01, 2025 Assessment & Plan (1) Closed intertrochanteric fracture of right femur: * Continue Current Treatment * S/p right TFN * Weight bearing status: WBAT * Daily treatment: Physical Therapy/ Occupational Therapy per protocol * Pain control * Continue to monitor for ABLA * DVT prophylaxis, ok to resume from ortho standpoint * Disposition: TBD * Patient is from out of area and plans to return home once discharged. Discussed office/hospital f/u 2 weeks for progress check and staple/suture rem oval with orthopedic provider local to her area. * Remainder care per primary team Subjective .Active Problems: S/p right TFN POD a 55 y/o female s/p right TFN. Doing well overall, pain managed and improved function. Denies fever/chills, chest pain/SOB, nausea/vomiting. Otherwise no complaints. Review of Systems All systems reviewed & are unremarkable except as noted in HPI & below. Physical Exam . * General: Alert and oriented, no acute distress * Constitutional: well-developed, well-nourished. * Respiratory: Normal respiratory effort, no distress * Gastrointestinal: No tenderness to palpation, no rigidity or guarding. * Skin: No rash or lesion. * Neurologic: Grossly normal * Musculoskeletal: Right hip surgical dressing CDI, not removed for exam. Otherwise no obvious deformity or overlying skin changes. Diffuse TTP proximal thigh and hip region. Otherwise no specific tenderness of distal thigh, lower leg, foot/ankle. AROM hip flexion limited secondary to pain. AROM foot/ankle intact. Sensation intact plantar/dorsal foot. Brisk capillary refill. Results & Data Results & Data Laboratory Results . Diagnostic Findings . Hip MRI 06/30/25 07:18 MRI OF THE RIGHT HIP WITHOUT CONTRAST CLINICAL HISTORY: Evaluate right hip fracture. COMPARISON STUDY: Pelvis and right hip radiographs and CT of the pelvis and hips June 29, 2025. TECHNIQUE: Utilizing a 3 Nicole magnet and dedicated coil, multiplanar, multi echo imaging of the right hip was performed without intra-articular or intravenous contrast. FINDINGS: A Greene balloon within the bladder is incidentally noted. There is a 3.8 cm oval-shaped T1 and T2 hyperintense left adnexal lesion. This favors an endometrioma. There is an adjacent 1.9 cm left ovarian lesion which favors a cyst. There is moderate edema within the right superior pubic ramus. There is associated linear T1 hypointense signal consistent with an acute nondisplaced fracture. Of note, there is an acute intertrochanteric fracture of the right femur. The fracture extends through the greater trochanter to the base of the lesser trochanter. A portion of the greater trochanter is slightly displaced. The remainder of the fracture is nondisplaced. There is an associated right hip joint effusion. There is moderate adjacent soft tissue edema. Edema extends into the right adductor musculature. There is mild T2 hyperintensity within the left ischial tuberosity. Minimal adjacent intramuscular edema. No definitive associated fracture line is present. There is no fracture within the left hip. IMPRESSION: 1. Acute intertrochanteric fracture of the right femur. A portion of the greater trochanter is slightly displaced. The remainder of the fracture is nondisplaced. 2. Acute nondisplaced superior right pubic ramus fracture. 3. Mild marrow edema within the left ischial tuberosity is nonspecific without definitive fracture line. ACT 112: Negative or not required by law. Electronically signed by: Sreekanth Mcduffie M.D. 06/30/2025 11:18 AM Femur X-Ray 06/30/25 12:30 FL femur RT 2V CLINICAL HISTORY: RT TROCH NAIL COMPARISON STUDY: 06/29/2025 FLUOROSCOPY TIME: 65 seconds FLUOROSCOPY IMAGES: 5 EXPOSURE DOSE: 6 mGy FINDINGS: Fluoroscopy was provided for right femoral gamma nail. IMPRESSION: Intraoperative fluoroscopy. ACT 112: Negative or not required by law. Electronically signed by: Shawn Good M.D. 06/30/2025 2:15 PM PG Care Time/CCT Total # of Minutes Spent Total Time Spent with Patient: Total time spent is greater than 50% in coordination of care (as documented) at patient's floor/unit and/or counseling patient: Coding Level of Care Code 20541 Post Operative Follow-Up Diagnoses Closed intertrochanteric fracture of right femur S72.141A
[2025-07-01] MEDS: MAGNESIUM SULFATE / D5W 1 GM/100 ML BAG IV SCH (08:53)
[2025-07-01] MEDS: POTASSIUM CHLORIDE CRTAB 20 MEQ TABCR PO STA (08:53)
[2025-07-01 09:58] LABS: Prealbumin 11.6 mg/dl (20-40)
--- NOTE | 2025-07-01 11:20 | Discharge Summary ---
Date of Service July 01, 2025 Admission HPI Per Admitting Provider 55 yo female with pmhx of neurologic disorder of unknown significance (uses walker, has right eye blindness, urinary incontinence) who presents after a fall for right hip. Patient is visiting from [place] and has no prior admissions here at [facility]. In the ED, CT hip revealing right commuted femur/greater trochanter fracture, admitted to medicine for further workup. Patient seen and examined at bedside. Father present as well. Patient was getting out of car and father fell on her which caused her to fall on the ground. No LOC, no head strike. Uses a walker but was not using it at the time, and occasionally does not use it. Immediately felt pain in right hip. She states that she has a neurologic disorder of unknown origin, she uses a walker, chronic cachexia, urinary incontinence, and right eye blindness. States she does not have any other medical conditions. Visiting from out of town in [place]. Denies alcohol or tobacco use, full code. Admission Exam Per Admitting Provider Gen: A&O 3 NAD, severe cachexia and sarcopenia HEENT: NCAT, EOMI, not icteric. External ears normal. No rhinorrhea. Moist mucous membranes. Neck: Supple, full range of motion, no observable masses, No meningeal sign. Lungs: No Respiratory distress. CV: RRR, no edema. Abdomen: Soft, nondistended, No rebound tenderness. MSK: tenderness to right hip, slight internal rotation Skin: No rashes, petechiae, lesions. Normal color per patient. Neuro: Normal Gait, Grossly intact. Psych: Appropriate for situation. Principal Diagnosis Intramedullary Nailing of Right Hip Fracture Discharge Exam Gen: A&O 3 NAD, severe cachexia and sarcopenia HEENT: NCAT, EOMI, not icteric. External ears normal. No rhinorrhea. Moist mucous membranes. Neck: Supple, full range of motion, no observable masses, No meningeal sign. Lungs: No Respiratory distress. CV: RRR, no edema. Abdomen: Soft, nondistended, No rebound tenderness. MSK: Right hip dressing c/d/i Skin: No rashes, petechiae, lesions. Normal color per patient. Neuro: Normal Gait, Grossly intact. Psych: Appropriate for situation. Discharge Data Allergies Allergy/AdvReac Type Severity Reaction Status Date / Time No Known Allergies Allergy Unverified 06/29/25 21:37 Consultations 06/29/25 18:18 ED Decision to Admit Stat 06/29/25 18:21 Consult Orthopedic Surgery Routine Procedures Performed Operation Date: 06/30/25 09:40 Actual Procedures p Right Long Troch Nail(Right) - Doron Coronado MD Ordered Studies 06/29/25 16:32 CT pelvis wo con Stat 06/30/25 07:18 MRI Hip [MR hip RT wo con] Routine 06/30/25 12:07 US - OR guided needle placemen Routine 06/30/25 12:30 FL femur RT 2V Routine Hospital Course (1) Closed hip fracture: (2) Fall: Plan 55 yo female with pmhx of neurologic disorder of unknown significance (uses walker, has right eye blindness, urinary incontinence) who presents after a fall for right hip pain 2/2 mechanical fall and right femur fracture. Mechanical Fall Right Comminuted Femur/Greater Trochanter Fracture confirmed by CT imaging s/p Right Long Troch Nail(Right) 06/30 Pain fairly under control, pt feels better. PT evaled, d/w PT, recs is HH. Pt herself wouldn't want to go to rehab, rather to home in [place]. Pt's dad is driving, advised pt not to drive. Advised pt to take a break (to move around) every hour and try to break her 5-6 hour travel over 2 days, pt voiced understanding. Pt advised to collect her meds prior to leaving the area so that Rx continuity is not broken. UTI Leukocytosis suggested by UA and leukocytosis no symptoms but fall and overall appearance concerning f/u Urine Cx, c/w ceftriaxone 06/29 for 5 days, to po atb on dc. 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 Follow-up with orthopedics in 2 weeks time upon discharge. Take antibiotics as prescribed to complete course for UTI. While on pain medication, utilize [id number] stool softener/laxative per tripe finisher's recommendation with a goal of 1-2 bowel movements a day. Donot drive while on pain medications. Follow-up with your neurology as an outpatient for your chronic neurologic disorder of unknown origin. Take your medications as prescribed. Please make sure that you are able to get your medications today by calling your pharmacy before you leave the hospital so that your treatment continuity is not broken. Home Health Attestation I certify that this patient is under my care and that I, or a physicians assistant public defender working with me, had a face to-face encounter that meets the home health [id number] encounter requirements with this patient. The encounter with the patient was in whole, or in part, for the following medical condition, which is the primary reason for home health care (list medical condition): I certify that, based on my findings, the following services are medically necessary home health services: My clinical findings support the need for the above services because: Further, I certify that my clinical findings support that this patient is homebound (i.e. absences from home require considerable and taxing effort and are for medical reasons or caodaism services or infrequently or of short duration when for other reasons) because: Certification for Home Health Services: Based on the above findings, I certify that this patient is confined to the home and needs intermittent intermediate care, physical therapy and/or speech therapy or continues to need occupational therapy. The patient is under my care, and I have initiated the establishment of the plan of care. This patient will be followed by a physician who will periodically review the plan of care. Total Time Total Time Spent Total Time Spent (In Minutes): 45 Discharge Plan Discharge Items Patient Disposition: Home - Home Health Services Reason For Visit: HIP FRACTURE Discharge Diagnosis: Intramedullary Nailing of Right Hip Fracture Condition on Discharge: Fair Activity: Per Instructions section Weightbearing: Full weightbearing Non-emergency contact: Surgeon Call non-emergency contact if: your symptoms worsen, your temperature is above 101.5, your wound has increased redness and your wound has increased drainage Follow-up/Referrals: Doron Coronado MD [Physician] - (Orthopedic follow-up 2-3 weeks from surgery date.) PCP,NO [Primary Care Provider] - Diet: Regular Addtl Attending Provider Instructions: Follow-up with your primary care physician within a week time and likely you will need labs CBC/CMP/magnesium/phosphorus. Follow-up with orthopedics in 2 weeks time upon discharge. Take antibiotics as prescribed to complete course for UTI. While on pain medication, utilize [id number] stool softener/laxative per tripe finisher's recommendation with a goal of 1-2 bowel movements a day. Donot drive while on pain medications. Follow-up with your neurology as an outpatient for your chronic neurologic disorder of unknown origin. Take your medications as prescribed. Please make sure that you are able to get your medications today by calling your pharmacy before you leave the hospital so that your treatment continuity is not broken. Addtl It Audit Manager Provider Instructions: General Orthopedic Discharge Instructions Activity: WBAT Diet: You may resume previous diet. Medications: 1. Narcotic You will likely be sent home from the hospital with a prescription for the narcotic pain medication. Take it as needed. Side effects most commonly include nausea and constipation 2. Resume previous home medications unless otherwise instructed Dressing Care: If there is a soft dressing in place then leave the dressing intact for 5 days. On the 5th you may remove the dressing and leave the stitches open to air or cover them with band-aids. Keep the incision clean and dry If there is a hard splint then leave it in place until your follow-up visit in 2 weeks Showering: If you have a soft dressing you may shower right after the surgery but do not get the dressing wet. After the dressing is removed on the 5th day then you can get the stitches wet in the shower, but do not soak or scrub them. Let the soapy shower water run over the stitches and pat them dry. If you have a hard splint, cover it in a plastic bag and keep it dry. Do not remove it until the follow up appointment. Things To Watch For: 1. Drainage from the incision site that occurs more than one week after your surgery. 2. Increased redness at the incision site. 3. Fever above 102 degrees Fahrenheit. 4. Unusual chest pain or shortness of breath. 5. Call [facility] at with any of the above problems. Follow-Up Visit: Please make arrangements to follow-up with Dr. Coronado team approximately 2 weeks after your day of surgery for progress check and staple/suture removal. If you have any questions call Pending Studies at Discharge: No Stand-Alone Forms: My [facility], Smoking Cessation Medications and DC Order Prescriptions: New aspirin 81 mg Tablet,Delayed Release (Dr/Ec) 81 mg PO BID 35 Days Qty: 70 0RF oxycodone 5 mg Tablet 5 mg PO Q6H PRN (Reason: pain) 5 Days Qty: 20 0RF cefdinir 300 mg capsule 300 mg PO BID 3 Days Qty: 6 0RF Continued citalopram 40 mg tablet 40 mg PO HS alprazolam 1 mg tablet 1 mg PO HS Patient Comments: per pt she ran out about a week ago ferrous sulfate [Iron (ferrous sulfate)] 325 mg (65 mg iron) Tablet 325 mg PO HS Centrum Silver Women 8 mg iron-400 mcg-50 mcg Tablet 1 tab PO DAILY Discharge Orders: Discharge Order (Routine); Ordered 07/01/25 Ordered By: Bre Limno Admission Data Admit Date/Time: 06/29/25 18:20 Attending Provider: Bre Limon Admit Provider: Woo Mcmanus Primary Care Provider: PCP,NO Other Providers: Woo Mcmanus; Paulie Hahn
[2025-07-01 12:46] VITALS: BP 138/78; PULSE 60
--- NOTE | 2025-07-01 13:13 | Electrocardiogram Report ---
Test Reason : Blood Pressure : */* mmHG Vent. Rate : 56 BPM Atrial Rate : 56 BPM P-R Int : 140 ms QRS Dur : 96 ms QT Int : 522 ms P-R-T Axes : 74 50 19 degrees QTcB Int : 503 ms Sinus bradycardia Nonspecific ST and T wave abnormality Cannot rule out ventricular pre-excitation Abnormal ECG No previous ECGs available Confirmed by Mauro Elam ([id number]) on 07/01/2025 1:12:39 PM Referred By: REFERRED SELF Confirmed By: Mauro Elam
--- NOTE | 2025-07-02 14:41 | Coding Query ---
MALNUTRITION To promote full compliance with coding requirements relating to patient care, physician participation is requested in all cases of remote medical coder uncertainty. Please assist us with the question(s) below: Please place an X within the parenthesis (x). If other, please document: "Malnutrition" is documented in this record. Pt with documented Cachexia - Dietary Consult If possible, please check the box that provides a more specific diagnosis: ( ) Mild malnutrition ( ) Moderate malnutrition ( ) Severe malnutrition ( ) Protein malnutrition (kwashiorkor) ( ) Severe protein calorie malnutrition ( x) Protein calorie malnutrition, unspecified ( ) Other (please specify): Was this diagnosis present on admission? Please place an X within the parenthesis (x). ( ) Present on admission ( ) Not present on admission ( ) Unable to be clinically determined Thank you SHAYNE Anders [facility]
== END 2025-07-01 13:22 | disposition home health service (06) | DRG 481 ==
LOC: ED 14:23 → SUATTDRO 18:20 → 3E 18:20